=== PATIENT | male | born 1965 | race Two or more races ===

== ENCOUNTER 2018-02-13 08:15 | Outpatient (CLI) | payer OTHER ==
[~2018-02-13 08:15] MED LIST: LOSARTAN-HCTZ1 EACH
== END 2018-02-13 08:54 | disposition home or self-care (01) ==
LOC: LAB 08:15 → RAD 08:15
DX: E11.9 Type 2 diabetes mellitus without complications (principal); I10 Essential (primary) hypertension; J45.909 Unspecified asthma, uncomplicated; J20.8 Acute bronchitis due to other specified organisms

== ENCOUNTER 2018-11-20 08:39 | Emergency (ER) | payer OTHER ==
[~2018-11-20] VITALS: Ht 180.3 cm; Wt 104.3 kg
== END 2018-11-20 09:17 | disposition home or self-care (01) ==
LOC: ER 08:39
DX: I10 Essential (primary) hypertension (principal); F06.4 Anxiety disorder due to known physiological condition

== ENCOUNTER 2023-10-25 17:47 | Emergency (ER) | payer OTHER ==
[~2023-10-25] VITALS: Ht 180.3 cm; Wt 113.4 kg
[2023-10-25] MEDS ORDERED: NIFEDIPINE20 MG PO (18:12)
[2023-10-25] MEDS ORDERED: METHYLPREDNISOLONE SOD SUCC 125 MG VIAL IV ONE (18:30)
[2023-10-25] MEDS ORDERED: AZITHROMYCIN 500 MG TABLET PO ONE (18:30)
[2023-10-25] MEDS ORDERED: GUAIFENESIN/DEXTROMETHORPHAN 100 MG/5 ML ML PO ONE (18:30)
[2023-10-25] MEDS ORDERED: KETOROLAC TROMETHAMINE 60 MG VIAL IM ONE (18:30)
[2023-10-25 18:50] LABS: HEMATOCRIT 40.7 % (39.0-48.0); HEMOGLOBIN 13.9 g/dL (13-16.00); MEAN CELL VOLUME 88.6 fL (80.0-100.00); MEAN CORPUSCULAR HEMOGLOBIN 30.3 pg (27.00-32.0); MEAN CORPUSCULAR HGB CONC 34.3 g/dl (32.0-36.0); PLATELET COUNT 313 K/uL (150-450); RED CELL DISTRIBUTION WIDTH 13.8 % (11.5-14.5)
[2023-10-25] MEDS ORDERED: LEVALBUTEROL HCL 1.25 MG/3 ML SOLUTION IH SCH (19:00)
[2023-10-25 19:19] LABS: ALBUMIN 3.8 gm/dL (3.4-5.0); BILIRUBIN TOTAL 0.24 mg/dL (0.3-1.2); CALCIUM 9.3 mg/dL (8.5-10.1); CREATININE SERUM 1.45 mg/dL (0.70-1.30); GFR 49.98; GLOBULINA 3.6 G/DL (2.4-3.5); POTASSIUM 4.31 mEq/L (3.5-5.1); TOTAL PROTEIN 7.4 gm/dL (6.4-8.2)
[2023-10-25] MEDS ORDERED: ZYRTEC10 M3 PO (19:46)
[2023-10-25] MEDS ORDERED: TUSNEL LIQUID178 ML PO (19:46)
[2023-10-25] MEDS ORDERED: ZITHROMAX500 MG PO (19:46)
== END 2023-10-25 19:48 | disposition home or self-care (01) ==
LOC: ER 17:47
PROVIDERS: General Practice
DX: J06.9 Acute upper respiratory infection, unspecified (principal); Z20.822 Contact with and (suspected) exposure to COVID-19

== ENCOUNTER 2024-06-23 09:19 | Emergency (ER) | payer OTHER ==
[~2024-06-23] VITALS: Ht 180.3 cm; Wt 108.9 kg
[~2024-06-23 09:19] MED LIST changes: +NIFEDIPINE20 MG PO; +TUSNEL LIQUID178 ML PO; +ZITHROMAX500 MG PO; +ZYRTEC10 M3 PO
[2024-06-23 11:07] LABS: PH,URINE 5.5 (5.0-8.0); URINE APPEARANCE Clear; URINE BILIRRUBIN Negative (NEGATIVE); URINE BLOOD Negative; URINE COLOR Dark Yellow; URINE GLUCOSE Negative (NEGATIVE); URINE KETONE Trace (NEGATIVE); URINE LEUKOCYTE Small; URINE NITRATE Negative; URINE PROTEIN 30 (NEGATIVE)
[2024-06-23 11:11] LABS: URINE BACTERIA 28.9 uL (0.0-1933); URINE EPITHELIAL CELLS 2.9 uL (0.0-38.8); URINE RBC 5.6 uL (0.0-20.8); URINE WBC 7.2 uL (0.0-23.2)
[2024-06-23 11:13] LABS: CALCIUM 8.8 mg/dL (8.5-10.1); CREATININE SERUM 1.18 mg/dL (0.70-1.30); GFR 63.4; POTASSIUM 3.45 mEq/L (3.5-5.1)
[2024-06-23 11:17] LABS: URINE CAST 1.22 uL (0.0-1.40)
[2024-06-23 11:18] LABS: HEMATOCRIT 43.7 % (39.0-48.0); HEMOGLOBIN 14.5 g/dL (13-16.00); MEAN CELL VOLUME 89.4 fL (80.0-100.00); MEAN CORPUSCULAR HEMOGLOBIN 29.8 pg (27.00-32.0); MEAN CORPUSCULAR HGB CONC 33.3 g/dl (32.0-36.0); PLATELET COUNT 317 K/uL (150-450); RED BLOOD COUNT 4.89 M/uL (4.00-6.00); RED CELL DISTRIBUTION WIDTH 13.6 % (11.5-14.5)
== END 2024-06-23 13:32 | disposition home or self-care (01) ==
LOC: ER 09:21
PROVIDERS: General Practice
DX: T46.1X5A Adverse effect of calcium-channel blockers, initial encounter (principal); I10 Essential (primary) hypertension